=== PATIENT | male | born 1985 | race Caucasian/White ===

== ENCOUNTER 2024-12-22 09:29 | Emergency (ER) | payer SELFPAY ==
--- OUTSIDE RECORDS SUMMARY | 2024-12-22 09:38 | XMS_ITS | Encounter Summary ---
Author Organization [facility] Address 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
--- OUTSIDE RECORDS SUMMARY | 2024-12-22 09:38 | XMS_ITS | Encounter Summary ---
Author Organization [facility] Address [address] [place] [address] Care Team Providers Care Electronic Security Technician Name Role Phone Colt Wilson MD Primary Care Provider [phone] Encounter Details Date Type Department Care Team (Late st Contact Info) Description 05/26/2001 Outpatient Historical [facility] Medicine [place] [address] [place] [address] [address] [place] [address] Haryd Velez MD NO ADDRESS ON FILE Social History Tobacco Use Types Packs/Day Years Used Date Smoking Tobacco: Never Assessed Sex and Gender Information Value Date Recorded Sex Assigned at Not on file Legal Sex Male 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
--- OUTSIDE RECORDS SUMMARY | 2024-12-22 09:38 | XMS_ITS | Encounter Summary ---
Author Organization [employer] Address 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
--- OUTSIDE RECORDS SUMMARY | 2024-12-22 09:38 | XMS_ITS | Encounter Summary ---
Author Organization [facility] Address [address] [place] [address] Care Team Providers Care Poured Pipe Maker Name Role Phone Colt Wilson MD Primary Care Provider [phone] Encounter Details Date Type Department Care Team (Late st Contact Info) Description 12/01/2000 Outpatient Historical [facility] Medicine [place] [address] [facility] [address] [place] [address] Josias Albert MD [address] [place] [address] Social History Tobacco Use Types Packs/Day Years Used Date Smoking Tobacco: Never Assessed Sex and Gender Information Value Date Recorded Sex Assigned at Not on file Legal 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
--- OUTSIDE RECORDS SUMMARY | 2024-12-22 09:38 | XMS_ITS | Encounter Summary ---
Author Organization [facility] Address 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
--- OUTSIDE RECORDS SUMMARY | 2024-12-22 09:38 | XMS_ITS | Clinical Summary ---
Author Organization [facility] Care Team Providers Care Rail Car Painter/Sandblaster Name Role Phone Unavailable Primary Care Provider Unavailabl e Social History Tobacco Use Types Packs/Day Years Used Date Smoking Tobacco: Never Assessed Sex and Gender Information Value Date Recorded Sex Assigned at Not on file Legal Sex Male 3:41 PM CDT Gender Identity Not on file Sexual Orientation Not on file Plan of Treatment Health Maintenance Due Date Last Done Comments Hepatitis C Virus (HCV) Screening 1983 TdaP Immunization 1983 Hepatitis B Immunization (1 of 3 - 19+ 3-dose series) 2002 Human Papillomavirus (HPV) Immunization (1 - 3-dose SCDM series) 2010 Influenza Immunization (#1) 2024 SARS-COV-2 Immunization ( season) 2024 Respiratory Syncytial Virus (RSV) Immunization (Adult) (1 - 1-dose 75+ series) 2058 Meningococcal Immunization (ACWY) Aged Out No longer eligible based on patient's age to complete this topic Pneumococcal Immunization Combined Aged Out No longer eligible based on patient's age to complete this topic Rotavirus Immunization Aged Out No lo nger eligible based on patient's age to complete this topic
--- OUTSIDE RECORDS SUMMARY | 2024-12-22 09:38 | XMS_ITS | Encounter Summary ---
Author Organization [facility] Address 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
--- OUTSIDE RECORDS SUMMARY | 2024-12-22 09:38 | XMS_ITS | Clinical Summary ---
Author Organization [employer] Address [address] [facility] [place] [address] Care Team Providers Care Rehabilitation Specialist Name Role Phone Colt Wilson MD Primary Care Provider [phone] Allergies Active Allergy Reactions Criticality Noted Date Comments No Known Allergies 04/16/2004 Medications No known medications Active Problems Problem Noted Date Diagnosed Date Genital condyloma, male 07/22/2015 Postoperative abscess 07/22/2015 Genital lesion, male - suspect condylomas 2015 Creatinine elevation 07/03/2015 Calculous cholecystitis 01/29/2013 Other and unspecified hyperlipidemia 06/29/2011 Unspecified hereditary and idiopathic peripheral neuropathy 08/15/2009 Major depressive disorder, single episode, mild 08/08/2009 Rosacea 09/12/2007 Other and unspecified hyperlipidemia Tobacco use disorder Restless legs syndrome (RLS) Unspecified hereditary and idiopathic peripheral neuropathy Resolved Problems Problem Noted Date Diagnosed Date Resolved Date Family history of asthma 04/21/2004 Family history of other card iovascular diseases(V17.49) 04/21/2004 09/12/2007 Overview (03/11/2010): Updating IMO/ICD9 Code and Description Family history of diabetes mellitus 04/16/2004 09/12/2007 Acute upper respiratory infe ctions of unspecified site 04/16/2004 09/12/2007 Influenza with other respira tory manifestations 04/16/2004 09/12/2007 Immunizations Immunization Administration Dates Next Due (ADACEL/BOOSTRIX)(10 YR UP) TDAP VACCINE, 0.5ML, IM 09/12/2007 Family History Medical History Relation Name Comments Healthy Daughter HUSSEIN Diabetes Father NATHANIEL Hypertension Maternal Grandfather Hypertension Maternal Grandmother Cancer Maternal Uncle LIVER CANCER Asthma Mother ANITA Cancer Mother ANITA cervical Other Mother ANITA protein s defic iency-clotting disorder Respiratory Disease Mother ANITA Hypertension Paternal Grandfather Diabetes Paternal Grandmother Heart Disease Paternal Grandmother Hypertension Paternal Grandmother Cancer Paternal Uncle LIVER CANCER Healthy Sister REA Healthy Son RADHA Relation Name Status Comments Brother none Daughter HUSSEIN Alive Father NATHANIEL Alive Maternal Grandfather Maternal Grandmother Maternal Uncle Mother ANITA Alive Paternal Grandfather Paternal Grandmother Paternal Uncle Sister REA Alive Son RADHA Alive Social History Tobacco Use Types Packs/Day Years Used Date Smoking Tobacco: Every Day Cigarettes 1.5 10 Smokeless Tobacco: Never Tobacco Cessation:Ready to Q uit: Yes; Counseling Given: Yes Alcohol Use Standard Drinks/Week Comments No 0 (1 standard drink = 0.6 oz pur e alcohol) Sex and Gender Information Value Date Recorded Sex Assigned at Not on file Legal Sex Male 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 Gender Identity Not on file Sexual Orientation Not on file Occupation Industry Job Start Date Job End Date Not on file Not on file Not on file Not on file Not on file Not on file Not on file Not on file Last Filed Vital Signs Vital Sign Reading Time Taken Comments Blood Pressure 130/105 06/28/2021 2:33 PM CDT Pulse 88 11/21/2018 6:57 PM CDT Temperature 36.7 C (98 F) 06/28/2021 2:33 PM CDT Respiratory Rate 20 06/28/2021 2:33 PM CDT Oxygen Saturation 100% 06/28/2021 2:33 PM CDT Inhaled Oxygen Concentration - - Weight 90.7 kg (200 lb) 06/28/2021 2:33 PM CDT Height 182.9 cm (6') 06/28/2021 2:33 PM CDT Body Mass Index 27.12 06/28/2021 2:33 PM CDT Plan of Treatment Health Maintenance Due Date Last Done Comments HEPATITIS B VACCINES (1 of 3 - 19+ 3-dose series) 07/2002 HPV VACCINES (1 - 3-dose SCDM series) 2010 DTAP/TDAP/TD VACCINES (2 - Td or Tdap) 09/11/2017 INFLUENZA VACCINE (#1) 2024 Insurance [facility] BLUE ACCESS CHOICE Advance Directives For more information, please contact: [phone] * Full Code (Latest Code Status on File) Date Activated Date Inactivated Comments 07/11/2015 6:17 AM 07/11/2015 2:08 PM Care Teams Rehabilitation Specialist Relationship Specialty Start Date End Date Colt Wilson MD PCP - General 04/13/12
--- OUTSIDE RECORDS SUMMARY | 2024-12-22 09:38 | XMS_ITS | Encounter Summary ---
Author Organization [facility] Address [address] [place] [address] Care Team Providers Care Cricket Coach Name Role Phone Colt Wilson MD Primary Care Provider [phone] Encounter Details Date Type Department Care Team (Late st Contact Info) Description 03/09/2001 Outpatient Historical 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
--- OUTSIDE RECORDS SUMMARY | 2024-12-22 09:38 | XMS_ITS | Encounter Summary ---
Author Organization [facility] Address 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
--- OUTSIDE RECORDS SUMMARY | 2024-12-22 09:38 | XMS_ITS | Encounter Summary ---
Author Organization [facility] Address [address] [place] [address] Care Team Providers Care Bar Attendant Name Role Phone Colt Wilson MD Primary Care Provider [phone] Encounter Details Date Type Department Care Team (Latest Contact Info) Description 06/04/1998 Outpatient Historical [facility] Marlon Larson MD [address] [place] [address] Intestinal infection due to other organism, not elsewhere classified (Primary Dx) Social History Tobacco Use Types Packs/Day Years Used Date Smoking Tobacco: Never Assessed Sex and Gender Information Value Date Recorded Sex Assigned at Not on file Legal Sex Male 4:12 AM PRODUCTION LINE Gender Identity Not on file Sexual Orientation Not on file documented as of this encounter Plan of Treatment Not on file documented as of this encounter Visit Diagnoses Diagnosis Intestinal infection due to other organism, not elsewhere classified- Primary documented in this encounter Additional Health Concerns Infection Onset Date Last Indicated Resolved Time R/O COVID-19 06/28/2021 06/28/2021 06/28/2021 3:57 PM CDT documented as of this encounter Care Teams Bar Attendant Relationship Specialty Start Date End Date Colt Wilson MD PCP - General 04/13/12 documented as of this encounter
--- OUTSIDE RECORDS SUMMARY | 2024-12-22 09:38 | XMS_ITS | Encounter Summary ---
Author Organization [facility] Address [address] [place] [address] Care Team Providers Care Glass Furnace Tender Name Role Phone Colt Wilson MD Primary Care Provider Encounter Details Date Type Department Care Team (Late st Contact Info) Description 12/30/1998 Outpatient Historical [facility] Medicine [place] [address] [facility] [address] [place] [address] Fredrick Quispe MD [address] [facility] [place] [address] Social History Tobacco Use Types Packs/Day Years Used Date Smoking Tobacco: Never Assessed Sex and Gender Information Value Date Recorded Sex Assigned at Not on file Legal 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
--- OUTSIDE RECORDS SUMMARY | 2024-12-22 09:38 | XMS_ITS | Encounter Summary ---
Author Organization [facility] Address [address] [place] [address] Care Team Providers Care Practice Manager Name Role Phone Colt Wilson MD Primary Care Provider [phone] Encounter Details Date Type Department Care Team (Late st Contact Info) Description 11/03/1998 Outpatient Historical [facility] Medicine [place] [address] [place] [address] [address] [place] [address] Fede Larson Social History Tobacco Use Types Packs/Day Years Used Date Smoking Tobacco: Never Assessed Sex and Gender Information Value Date Recorded Sex Assigned at Not on file Legal Sex Male 4:12 AM RECEPTION Gender Identity Not on file Sexual Orientation Not on file documented as of this encounter Plan of Treatment Not on file documented as of this encounter Visit Diagnoses Not on filedocumented in this encounter Additional Health Concerns Infection Onset Date Last Indicated Resolved Time R/O COVID-19 06/28/2021 06/28/2021 06/28/2021 3:57 PM CDT documented as of this encounter Care Teams Practice Manager Relationship Specialty Start Date End Date Colt Wilson MD PCP - General 04/13/12 documented as of this encounter
--- OUTSIDE RECORDS SUMMARY | 2024-12-22 09:38 | XMS_ITS | Encounter Summary ---
Author Organization [facility] Address 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
--- OUTSIDE RECORDS SUMMARY | 2024-12-22 09:38 | XMS_ITS | Encounter Summary ---
Author Organization [facility] Address [address] [place] [address] Care Team Providers Care Fbi Field Agent Name Role Phone Colt Wilson MD Primary Care Provider [phone] Encounter Details Date Type Department Care Team (Late st Contact Info) Description 03/10/2000 Outpatient Historical [facility] Medicine [place] [address] [facility] [address] [place] [address] Josias Albert MD [address] [place] [address] Social History Tobacco Use Types Packs/Day Years Used Date Smoking Tobacco: Never Assessed Sex and Gender Information Value Date Recorded Sex Assigned at Not on file Legal Sex Male 4:12 AM LEAD GENERATOR Gender Identity Not on file Sexual Orientation Not on file documented as of this encounter Plan of Treatment Not on file documented as of this encounter Visit Diagnoses Not on filedocumented in this encounter Additional Health Concerns Infection Onset Date Last Indicated Resolved Time R/O COVID-19 06/28/2021 06/28/2021 06/28/2021 3:57 PM CDT documented as of this encounter Care Teams Fbi Field Agent Relationship Specialty Start Date End Date Colt Wilson MD PCP - General 04/13/12 documented as of this encounter
--- OUTSIDE RECORDS SUMMARY | 2024-12-22 09:38 | XMS_ITS | Encounter Summary ---
Author Organization [facility] Address [address] [place] [address] Care Team Providers Care Chief Airport Guide Name Role Phone Colt Wilson MD Primary Care Provider [phone] Encounter Details Date Type Department Care Team (Late st Contact Info) Description 11/03/1998 Outpatient Historical [facility] Medicine [place] [address] [facility] [address] [place] [address] Fredrick Quispe MD [address] [facility] [place] [address] Social History Tobacco Use Types Packs/Day Years Used Date Smoking Tobacco: Never Assessed Sex and Gender Information Value Date Recorded Sex Assigned at Not on file Legal Sex Male 4:12 AM TEAR DOWN MATCHER Gender Identity Not on file Sexual Orientation Not on file documented as of this encounter Plan of Treatment Not on file documented as of this encounter Visit Diagnoses Not on filedocumented in this encounter Additional Health Concerns Infection Onset Date Last Indicated Resolved Time R/O COVID-19 06/28/2021 06/28/2021 06/28/2021 3:57 PM CDT documented as of this encounter Care Teams Chief Airport Guide Relationship Specialty Start Date End Date Colt Wilson MD PCP - General 04/13/12 documented as of this encounter
--- OUTSIDE RECORDS SUMMARY | 2024-12-22 09:38 | XMS_ITS | Encounter Summary ---
Author Organization [facility] Address 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
--- OUTSIDE RECORDS SUMMARY | 2024-12-22 09:38 | XMS_ITS | Encounter Summary ---
Author Organization [facility] Address [address] [place] [address] Care Team Providers Care Fisheries Management Biologist Name Role Phone Colt Wilson MD Primary Care Provider [phone] Encounter Details Date Type Department Care Team (Late st Contact Info) Description 04/16/2004 Outpatient Historical [facility] Medicine [place] [address] [facility] [address] [place] [address] Jennifer Young [place] [address] Social History Tobacco Use Types Packs/Day Years Used Date Smoking Tobacco: Never Assessed Sex and Gender Information Value Date Recorded Sex Assigned at Not on file Legal Sex Male 4:12 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
--- OUTSIDE RECORDS SUMMARY | 2024-12-22 09:38 | XMS_ITS | Encounter Summary ---
Author Organization [facility] Address [address] [place] [address] Care Team Providers Care Public Opinion Survey Taker Name Role Phone Colt Wilson MD Primary Care Provider [phone] Encounter Details Date Type Department Care Team (Late st Contact Info) Description 03/15/2001 Outpatient Historical [facility] Medicine [place] [address] 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
--- OUTSIDE RECORDS SUMMARY | 2024-12-22 09:38 | XMS_ITS | Encounter Summary ---
Author Organization [facility] Address [address] [place] [address] Care Team Providers Care Stave Machine Tender Name Role Phone Colt Wilson MD Primary Care Provider [phone] Encounter Details Date Type Department Care Team (Late st Contact Info) Description 09/27/2007 Outpatient Historical [facility] Brayan Luciano MD [address] [place] [address] Other Elevated White Blood Cell Count Social History Tobacco Use Types Packs/Day Years Used Date Smoking Tobacco: Every Day Cigarettes 1.5 6 Alcohol Use Standard Drinks/Week Comments No 0 (1 standard drink = 0.6 oz pur e alcohol) Sex and Gender Information Value Date Recorded Sex Assigned at Not on file Legal Sex Male 4:12 AM METALLURGIST HELPER Gender Identity Not on file Sexual Orientation Not on file documented as of this encounter Plan of Treatment Not on file documented as of this encounter Visit Diagnoses Diagnosis Other elevated white blood cell count documented in this encounter Additional Health Concerns Infection Onset Date Last Indicated Resolved Time R/O COVID-19 06/28/2021 06/28/2021 06/28/2021 3:57 PM CDT documented as of this encounter Care Teams Stave Machine Tender Relationship Specialty Start Date End Date Colt iWlson MD PCP - General 04/13/12 documented as of this encounter
--- OUTSIDE RECORDS SUMMARY | 2024-12-22 09:38 | XMS_ITS | Encounter Summary ---
Author Organization [facility] Address [address] [place] [address] Care Team Providers Care Skiing Teacher Name Role Phone Colt Wilson MD Primary Care Provider [phone] Encounter Details Date Type Department Care Team (Late st Contact Info) Description 02/03/2001 Outpatient Historical [facility] Medicine [place] [address] [facility] [address] [place] [address] Josias Albert MD [address] [place] [address] Social History Tobacco Use Types Packs/Day Years Used Date Smoking Tobacco: Never Assessed Sex and Gender Information Value Date Recorded Sex Assigned at Not on file Legal Sex Male 4: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
--- OUTSIDE RECORDS SUMMARY | 2024-12-22 09:38 | XMS_ITS | Encounter Summary ---
Author Organization [facility] Address 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
--- OUTSIDE RECORDS SUMMARY | 2024-12-22 09:38 | XMS_ITS | Encounter Summary ---
Author Organization [facility] Address [address] [place] [address] Care Team Providers Care Shampoo Person Name Role Phone Colt Wilson MD Primary Care Provider [phone] Encounter Details Date Type Department Care Team (Late st Contact Info) Description 11/17/2000 Outpatient Historical [facility] Medicine [place] [address] 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
--- OUTSIDE RECORDS SUMMARY | 2024-12-22 09:38 | XMS_ITS | Encounter Summary ---
Author Organization [facility] Address [address] [place] [address] Care Team Providers Care Aircraft Instrument Engineer Name Role Phone Colt Wilson MD Primary Care Provider [phone] Encounter Details Date Type Department Care Team (Late st Contact Info) Description 09/28/2000 Emergency [facility] Jason Mays MD [address] [place] [address] Emergency Dept [place], [place] [id number] Sprain of neck (Primary Dx) Social History Tobacco Use Types Packs/Day Years Used Date Smoking Tobacco: Never Assessed Sex and Gender Information Value Date Recorded Sex Assigned at Not on file Legal Sex Male 4:12 AM COOK SPECIALTY Gender Identity Not on file Sexual Orientation Not on file documented as of this encounter Plan of Treatment Not on file documented as of this encounter Visit Diagnoses Diagnosis Sprain of neck- Primary documented in this encounter Additional Health Concerns Infection Onset Date Last Indicated Resolved Time R/O COVID-19 06/28/2021 06/28/2021 06/28/2021 3:57 PM CDT documented as of this encounter Care Teams Aircraft Instrument Engineer Relationship Specialty Start Date End Date Colt Wilson MD PCP - General 04/13/12 documented as of this encounter
--- OUTSIDE RECORDS SUMMARY | 2024-12-22 09:38 | XMS_ITS | Encounter Summary ---
Author Organization [facility] Address [address] [place] [address] Care Team Providers Care Freelance Translator Name Role Phone Colt Wilson MD Primary Care Provider [phone] Encounter Details Date Type Department Care Team (Late st Contact Info) Description 11/08/2000 Outpatient Historical [facility] Medicine [place] 1937 [facility] [address] [place] [address] Josias Albert MD [address] [place] [address] Social History Tobacco Use Types Packs/Day Years Used Date Smoking Tobacco: Never Assessed Sex and Gender Information Value Date Recorded Sex Assigned at Not on file Legal Sex Male 4:12 AM MAIL TECHNICIAN Gender Identity Not on file Sexual Orientation Not on file documented as of this encounter Plan of Treatment Not on file documented as of this encounter Visit Diagnoses Not on filedocumented in this encounter Additional Health Concerns Infection Onset Date Last Indicated Resolved Time R/O COVID-19 06/28/2021 06/28/2021 06/28/2021 3:57 PM CDT documented as of this encounter Care Teams Freelance Translator Relationship Specialty Start Date End Date Colt Wilson MD PCP - General 04/13/12 documented as of this encounter
--- OUTSIDE RECORDS SUMMARY | 2024-12-22 09:38 | XMS_ITS | Encounter Summary ---
Author Organization [facility] Address [address] [place] [address] Care Team Providers Care Camera Mechanic Name Role Phone Colt Wilson MD Primary Care Provider [phone] Encounter Details Date Type Department Care Team (Late st Contact Info) Description 04/16/2004 Outpatient Historical [facility] Medicine [place] [address] [facility] [address] [place] [address] Jennifer Young MD [facility] [place] [address] Social History Tobacco Use Types Packs/Day Years Used Date Smoking Tobacco: Never Assessed Sex and Gender Information Value Date Recorded Sex Assigned at Not on file Legal Sex Male 4:12 AM MUD ANALYSIS OPERATOR Gender Identity Not on file Sexual Orientation Not on file documented as of this encounter Plan of Treatment Not on file documented as of this encounter Visit Diagnoses Not on filedocumented in this encounter Additional Health Concerns Infection Onset Date Last Indicated Resolved Time R/O COVID-19 06/28/2021 06/28/2021 06/28/2021 3:57 PM CDT documented as of this encounter Care Teams Camera Mechanic Relationship Specialty Start Date End Date Colt Wilson MD PCP - General 04/13/12 documented as of this encounter
--- OUTSIDE RECORDS SUMMARY | 2024-12-22 09:38 | XMS_ITS | Encounter Summary ---
Author Organization [facility] Address [address] [place] [address] Care Team Providers Care Oil Pipe Inspector Helper Name Role Phone Colt Wilson MD Primary Care Provider Encounter Details Date Type Department Care Team (Late st Contact Info) Description 01/26/1999 Outpatient Historical [facility] Medicine [place] [address] [place] [address] [address] [place] [address] Fede Larson Social History Tobacco Use Types Packs/Day Years Used Date Smoking Tobacco: Never Assessed Sex and Gender Information Value Date Recorded Sex Assigned at Not on file Legal Sex Male 4:12 AM FUNERAL PRE NEED CONSULTANT Gender Identity Not on file Sexual Orientation Not on file documented as of this encounter Plan of Treatment Not on file documented as of this encounter Visit Diagnoses Not on filedocumented in this encounter Additional Health Concerns Infection Onset Date Last Indicated Resolved Time R/O COVID-19 06/28/2021 06/28/2021 06/28/2021 3:57 PM CDT documented as of this encounter Care Teams Oil Pipe Inspector Helper Relationship Specialty Start Date End Date Colt Wilson MD PCP - General 04/13/12 documented as of this encounter
--- OUTSIDE RECORDS SUMMARY | 2024-12-22 09:38 | XMS_ITS | Encounter Summary ---
Author Organization [facility] Address [address] [place] [address] Care Team Providers Care Hoop Riveting Machine Operator Helper Name Role Phone Colt Wilson MD Primary Care Provider [phone] Encounter Details Date Type Department Care Team (Late st Contact Info) Description 06/04/1998 Outpatient Historical [facility] Medicine [place] [address] [place] [address] [address] [place] [address] Thad Terry NO ADDRESS ON FILE Social History Tobacco Use Types Packs/Day Years Used Date Smoking Tobacco: Never Assessed Sex and Gender Information Value Date Recorded Sex Assigned at Not on file Legal Sex Male 4:12 AM SERVICE COUNSELOR Gender Identity Not on file Sexual Orientation Not on file documented as of this encounter Plan of Treatment Not on file documented as of this encounter Visit Diagnoses Not on filedocumented in this encounter Additional Health Concerns Infection Onset Date Last Indicated Resolved Time R/O COVID-19 06/28/2021 06/28/2021 06/28/2021 3:57 PM CDT documented as of this encounter Care Teams Hoop Riveting Machine Operator Helper Relationship Specialty Start Date End Date Colt Wilson MD PCP - General 04/13/12 documented as of this encounter
--- OUTSIDE RECORDS SUMMARY | 2024-12-22 09:38 | XMS_ITS | Encounter Summary ---
Author Organization [employer] [facility] Address [address] [place] [address] Care Team Providers Care Bi Architect Name Role Phone Colt Wilson MD Primary Care Provider [phone] Encounter Details Date Type Department Care Team (Late st Contact Info) Description 01/21/1999 Outpatient Historical [facility] Social History Tobacco Use Types Packs/Day Years Used Date Smoking Tobacco: Never Assessed Sex and Gender Information Value Date Recorded Sex Assigned at Not on file Legal Sex Male 4:12 AM STAPLE SIDE LASTER Gender Identity Not on file Sexual Orientation Not on file documented as of this encounter Plan of Treatment Not on file documented as of this encounter Visit Diagnoses Not on filedocumented in this encounter Additional Health Concerns Infection Onset Date Last Indicated Resolved Time R/O COVID-19 06/28/2021 06/28/2021 06/28/2021 3:57 PM CDT documented as of this encounter Care Teams Bi Architect Relationship Specialty Start Date End Date Colt Wilson MD PCP - General 04/13/12 documented as of this encounter
--- OUTSIDE RECORDS SUMMARY | 2024-12-22 09:38 | XMS_ITS | Encounter Summary ---
Author Organization [facility] Address [address] [place] [address] Care Team Providers Care Supervisor Curing Room Name Role Phone Colt Wilson MD Primary Care Provider [phone] Encounter Details Date Type Department Care Team (Late st Contact Info) Description 11/20/2006 Emergency [facility] Superficial Injury of Cornea (Primary Dx) Social History Tobacco Use Types Packs/Day Years Used Date Smoking Tobacco: Never Assessed Sex and Gender Information Value Date Recorded Sex Assigned at Not on file Legal Sex Male 4:12 AM GAME PROGRAMMER Gender Identity Not on file Sexual Orientation Not on file documented as of this encounter Plan of Treatment Not on file documented as of this encounter Visit Diagnoses Diagnosis Superficial injury of cornea- Primary documented in this encounter Additional Health Concerns Infection Onset Date Last Indicated Resolved Time R/O COVID-19 06/28/2021 06/28/2021 06/28/2021 3:57 PM CDT documented as of this encounter Care Teams Supervisor Curing Room Relationship Specialty Start Date End Date Colt Wilson MD PCP - General 04/13/12 documented as of this encounter
--- OUTSIDE RECORDS SUMMARY | 2024-12-22 09:38 | XMS_ITS | Encounter Summary ---
Author Organization [facility] Address [address] [place] [address] Care Team Providers Care Community Relations Coordinator Name Role Phone Colt Wilson MD Primary Care Provider [phone] Encounter Details Date Type Department Care Team (Late st Contact Info) Description 04/08/1999 Outpatient Historical [facility] Medicine [place] [address] [place] [address] [address] [place] [address] Fede Larson Social History Tobacco Use Types Packs/Day Years Used Date Smoking Tobacco: Never Assessed Sex and Gender Information Value Date Recorded Sex Assigned at Not on file Legal Sex Male 4:12 AM PIANO ASSEMBLER Gender Identity Not on file Sexual Orientation Not on file documented as of this encounter Plan of Treatment Not on file documented as of this encounter Visit Diagnoses Not on filedocumented in this encounter Additional Health Concerns Infection Onset Date Last Indicated Resolved Time R/O COVID-19 06/28/2021 06/28/2021 06/28/2021 3:57 PM CDT documented as of this encounter Care Teams Community Relations Coordinator Relationship Specialty Start Date End Date Colt Wilson MD PCP - General 04/13/12 documented as of this encounter
--- OUTSIDE RECORDS SUMMARY | 2024-12-22 09:38 | XMS_ITS | Encounter Summary ---
Author Organization [facility] Address [address] [place] [address] Care Team Providers Care Convenience Store Clerk Name Role Phone Colt Wilson MD Primary Care Provider [phone] Encounter Details Date Type Department Care Team (Late st Contact Info) Description 10/03/2003 Outpatient Historical [facility] Medicine [place] [address] [place] [address] [address] [place] [address] Hardy Velez MD NO ADDRESS ON FILE Social History Tobacco Use Types Packs/Day Years Used Date Smoking Tobacco: Never Assessed Sex and Gender Information Value Date Recorded Sex Assigned at Not on file Legal Sex Male 4:12 AM OPEN HEARTH FURNACE OPERATOR HELPER Gender Identity Not on file Sexual Orientation Not on file documented as of this encounter Plan of Treatment Not on file documented as of this encounter Visit Diagnoses Not on filedocumented in this encounter Additional Health Concerns Infection Onset Date Last Indicated Resolved Time R/O COVID-19 06/28/2021 06/28/2021 06/28/2021 3:57 PM CDT documented as of this encounter Care Teams Convenience Store Clerk Relationship Specialty Start Date End Date Colt Wilson MD PCP - General 04/13/12 documented as of this encounter
--- OUTSIDE RECORDS SUMMARY | 2024-12-22 09:38 | XMS_ITS | Encounter Summary ---
Author Organization [employer] Address [address] [place] [address] Care Team Providers Care Tennis Instructor Name Role Phone Colt Wilson MD Primary Care Provider Encounter Details Date Type Department Care Team (Late st Contact Info) Description 01/21/1999 Outpatient Historical [facility] Fredrick Mandel MD [address] [facility] [place] [address] Social History Tobacco Use Types Packs/Day Years Used Date Smoking Tobacco: Never Assessed Sex and Gender Information Value Date Recorded Sex Assigned at Not on file Legal Sex Male 4:12 AM HOB MILL OPERATOR Gender Identity Not on file Sexual Orientation Not on file documented as of this encounter Plan of Treatment Not on file documented as of this encounter Visit Diagnoses Not on filedocumented in this encounter Additional Health Concerns Infection Onset Date Last Indicated Resolved Time R/O COVID-19 06/28/2021 06/28/2021 06/28/2021 3:57 PM CDT documented as of this encounter Care Teams Tennis Instructor Relationship Specialty Start Date End Date Colt Wilson MD PCP - General 04/13/12 documented as of this encounter
--- OUTSIDE RECORDS SUMMARY | 2024-12-22 09:38 | XMS_ITS | Encounter Summary ---
Author Organization [employer] Address [address] [place] [address] Care Team Providers Care Accounting Tutor Name Role Phone Colt Wilson MD Primary Care Provider [phone] Encounter Details Date Type Department Care Team (Late st Contact Info) Description 11/03/1998 Outpatient Historical [facility] Fredrick Quispe MD [address] [facility] [place] [address] Cervicalgia (Primary Dx) Social History Tobacco Use Types Packs/Day Years Used Date Smoking Tobacco: Never Assessed Sex and Gender Information Value Date Recorded Sex Assigned at Not on file Legal Sex Male 4:12 AM DIAMOND ASSORTER Gender Identity Not on file Sexual Orientation Not on file documented as of this encounter Plan of Treatment Not on file documented as of this encounter Visit Diagnoses Diagnosis Cervicalgia- Primary documented in this encounter Additional Health Concerns Infection Onset Date Last Indicated Resolved Time R/O COVID-19 06/28/2021 06/28/2021 06/28/2021 3:57 PM CDT documented as of this encounter Care Teams Accounting Tutor Relationship Specialty Start Date End Date Colt Wilson MD PCP - General 04/13/12 documented as of this encounter
--- OUTSIDE RECORDS SUMMARY | 2024-12-22 09:38 | XMS_ITS | Encounter Summary ---
Author Organization [facility] Address [address] [place] [address] Care Team Providers Care Extractive Metallurgist Name Role Phone Colt Wilson MD Primary Care Provider [phone] Encounter Details Date Type Department Care Team (Late st Contact Info) Description 11/01/2001 Outpatient Historical [facility] Medicine [place] [address] [place] [address] Josias Albert MD [address] [place] [address] Social History Tobacco Use Types Packs/Day Years Used Date Smoking Tobacco: Never Assessed Sex and Gender Information Value Date Recorded Sex Assigned at Not on file Legal Sex Male 4:12 AM FOOT CUTTER Gender Identity Not on file Sexual Orientation Not on file documented as of this encounter Plan of Treatment Not on file documented as of this encounter Visit Diagnoses Not on filedocumented in this encounter Additional Health Concerns Infection Onset Date Last Indicated Resolved Time R/O COVID-19 06/28/2021 06/28/2021 06/28/2021 3:57 PM CDT documented as of this encounter Care Teams Extractive Metallurgist Relationship Specialty Start Date End Date Colt Wilson MD PCP - General 04/13/12 documented as of this encounter
--- OUTSIDE RECORDS SUMMARY | 2024-12-22 09:38 | XMS_ITS | Encounter Summary ---
Author Organization [facility] Address [address] [place] [address] Care Team Providers Care Assembler Metal Furniture Name Role Phone Colt Wilson MD Primary Care Provider [phone] Encounter Details Date Type Department Care Team (Late st Contact Info) Description 09/24/1998 Outpatient Historical [facility] Medicine [place] [address] [place] [address] [address] [place] [address] Thad Terry NO ADDRESS ON FILE Social History Tobacco Use Types Packs/Day Years Used Date Smoking Tobacco: Never Assessed Sex and Gender Information Value Date Recorded Sex Assigned at Not on file Legal Sex Male 4:12 AM INFUSION NURSE Gender Identity Not on file Sexual Orientation Not on file documented as of this encounter Plan of Treatment Not on file documented as of this encounter Visit Diagnoses Not on filedocumented in this encounter Additional Health Concerns Infection Onset Date Last Indicated Resolved Time R/O COVID-19 06/28/2021 06/28/2021 06/28/2021 3:57 PM CDT documented as of this encounter Care Teams Assembler Metal Furniture Relationship Specialty Start Date End Date Colt Wilson MD PCP - General 04/13/12 documented as of this encounter
--- OUTSIDE RECORDS SUMMARY | 2024-12-22 09:38 | XMS_ITS | Encounter Summary ---
Author Organization [employer] [facility] Address [address] [place] [address] Care Team Providers Care Engineer Second Assistant Name Role Phone Colt Wilson MD Primary Care Provider [phone] Encounter Details Date Type Department Care Team (Late st Contact Info) Description 09/12/2007 Outpatient Historical [facility] Brayan Luciano MD [address] [place] [address] Screening for Thyroid Disorder Social History Tobacco Use Types Packs/Day Years Used Date Smoking Tobacco: Every Day Cigarettes 1.5 6 Alcohol Use Standard Drinks/Week Comments No 0 (1 standard drink = 0.6 oz pur e alcohol) Sex and Gender Information Value Date Recorded Sex Assigned at Not on file 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
--- OUTSIDE RECORDS SUMMARY | 2024-12-22 09:38 | XMS_ITS | Encounter Summary ---
Author Organization [facility] Address 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
--- OUTSIDE RECORDS SUMMARY | 2024-12-22 09:38 | XMS_ITS | Encounter Summary ---
Author Organization [facility] Address 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
[2024-12-22 09:43] VITALS: BP 155/117; PULSE 90; RESP 18; TEMP 36.8; O2SAT 97
--- NOTE | 2024-12-22 09:59 | ED.NAVMDI ---
HPI - Nausea/Vomiting/Diarrhea General Chief complaint: Nausea/Vomiting/Diarrhea Stated complaint: fever Time Seen by Provider: 12/22/24 09:47 Source: patient and RN notes reviewed Mode of arrival: ambulatory Limitations: no limitations History of Present Illness HPI Narrative: 39 year old male patient presents today complaining of a 3 day history of nausea, dry heaving, few episodes of diarrhea and few episodes of vomiting with 1 episode of fever up to 100.3. Denies abdominal pain, blood or mucus in the stool. He has tried DayQuil for his symptoms. Patient has been able to keep down fluids and bit of food intermittently. No known sick contacts. Patient has not seen a PCP in 11 years. Related Data Allergies Allergy/AdvReac Type Severity Reaction Status Date / Time No Known Allergies Allergy Verified 12/22/24 09:43 PMFSH Comments At time of signature, I have reviewed and agree with nursing past medical, surgical, social and family history unless otherwise noted. Please see nursing chart for further information. There is no relevant family history pertinent to the presenting complaint Exam Narrative: GENERAL: Well-appearing, well-nourished, and in no acute distress. HEAD: Normocephalic, atraumatic. EYES: EOMI. No redness or drainage. Conjunctivae normal. ENT: Mucous membranes pink and moist. Nares clear. No rhinorrhea. NECK: Normal AROM. Supple. No lymphadenopathy. CHEST: No respiratory distress. Clear to auscultation. HEART: Regular rate and rhythm. No murmur appreciated. Normal peripheral pulses. ABDOMEN: Soft, nontender, nondistended, normal active bowel sounds. EXTREMITIES: Normal range of motion. No edema. SKIN: Warm, dry, no rash. Capillary refill normal. Normal skin turgor. NEURO: No focal deficits. Alert and oriented x3. Gait steady. PSYCH: Normal affect. No signs of depression or anxiety. Course Course Level of Care: Express Care Visit Vital Signs Vital signs: Vital Signs Temperature 98.2 F 12/22/24 09:43 Pulse Rate 90 12/22/24 09:43 Respiratory Rate 18 12/22/24 09:43 Blood Pressure 155/117 H 12/22/24 09:43 Pulse Oximetry 97 12/22/24 09:43 Oxygen Delivery Room Air 12/22/24 09:43 Temperature 98.2 F 11/08/25 09:43 Pulse Rate 90 12/22/24 09:43 Respiratory Rate 18 12/22/24 09:43 Blood Pressure 156/112 H 12/22/24 10:03 Pulse Oximetry 97 12/22/24 09:43 Oxygen Delivery Room Air 12/22/24 09:43 Reviewed. Patient has no red flag symptoms regarding BP. Urged to follow up with PCP for care. MDM - Nausea/Vomiting/Diarrhea MDM Narrative Medical decision making narrative: 39 year old male patient presents today complaining of a 3 day history of nausea, dry heaving, few episodes of diarrhea and few episodes of vomiting with 1 episode of fever up to 100.3. Denies abdominal pain, blood or mucus in the stool. He has tried DayQuil for his symptoms. Patient has been able to keep down fluids and bit of food intermittently. No known sick contacts. Patient has not seen a PCP in 11 years. Patient's normal physical exam. COVID and influenza negative. Symptoms likely viral in etiology it will be self-limiting. At this time he does not seem dehydrated and is able to orally hydrate. Prescription for oral Zofran sent to pharmacy for persistent nausea. Urged patient to find a PCP to initiate care. Patient agrees with plan. Differential Diagnosis Differential diagnosis: Likely food poisoning, gastroenteritis and dehydration Lab Data Attestation: I reviewed the patient's lab results. Lab results narrative: COVID and influenza negative Labs: Lab Results 12/22/24 Range/Units 10:05 POC Influenza A Ag Negative (Negative) POC Influenza B Ag Negative (Negative) POC SARS CoV-2 Ag Negative (Negative) Critical Care Time Critical Care Time Critical Care Time: No Discharge Plan Discharge Clinical Impression: Nausea vomiting and diarrhea Patient Disposition: Home Condition: Stable Instructions: Acute Nausea and Vomiting (DC), Acute Diarrhea (ED) Additional Instructions: Your COVID-19 and influenza swabs are negative today. Your symptoms are likely due to a viral illness. Please take the Zofran as prescribed. Rest and stay hydrated. As discussed, please follow-up in initiate care with a PCP, especially for your elevated blood pressure. If symptoms do not resolve within the next 4-5 days, please follow-up. If symptoms worsen to include abdominal pain, persistent vomiting, blood or mucus in your stool, feelings of dehydration and inability to keep fluids down, please go to the ER immediately for further evaluation. Patient Language: Romanian Prescriptions: New ondansetron 4 mg tablet,disintegrating 4 mg PO Q4-6H PRN (Reason: nausea and vomiting) Qty: 20 0RF Follow-up/Referrals: UNKNOWN,DOCTOR [Primary Care Provider] Time of Disposition: 10:07
[2024-12-22 10:03] VITALS: BP 156/112
[2024-12-22 10:06] LABS: EDCOVIDSCREEN Negative (Negative)
[2024-12-22 10:07] LABS: EDINFLUASCREEN Negative (Negative); EDINFLUBSCREEN Negative (Negative)
== END 2024-12-22 10:10 | disposition home or self-care (01) ==
PROVIDERS: Emergency Provider Nurse Practitioner
DX: R11.2 Nausea with vomiting, unspecified (principal); R19.7 Diarrhea, unspecified; Z20.822 Contact with and (suspected) exposure to COVID-19
CPT/HCPCS: 87426; 87804; 99203; G0463